=== PATIENT | female | born 1960 | race Caucasian/White ===

== ENCOUNTER 2016-09-06 07:49 | Day surgery (SDC) | payer OTHER ==
[~2016-09-06] VITALS: Ht 160.7 cm; Wt 68.3 kg
== END 2016-09-06 10:00 | disposition short-term general hospital (02) ==
LOC: SURGOP 07:49
PROC: 0DJD8ZZ Inspection of Lower Intestinal Tract, Via Natural or Artificial Opening Endoscopic (ICD-10-PCS; principal; 2016-09-06)
DX: Z12.11 Encounter for screening for malignant neoplasm of colon (principal); Z87.891 Personal history of nicotine dependence
CPT/HCPCS: J2175; J2250